=== PATIENT | male | born 1955 | race Caucasian/White ===

== ENCOUNTER 2019-04-21 09:59 | Observation (INO) ==
[~2019-04-21 09:59] MED LIST: ACETAMINOPHEN 500 MG TABLET PO ONE; CELECOXIB 200 MG CAPSULE PO ONE; GABAPENTIN 300 MG CAPSULE PO ONE; LIDOCAINE W/ SODIUM BICARB 0.5 ML SYR ONE; LIDOCAINE W/ SODIUM BICARB 0.5 ML SYR SUBD PRN; Lactated Ringers 1,000 ML PRIMARY IV ONE; Nasal Sanitizer POPSWAB ampule 3 AMP (Nozin) PREOP DOSE ENOS SCH; PANTOPRAZOLE 20 MG TABLET.DR PO ONE; ceFAZolin Inj 2gm (Premix) 0 GM/0 ML BAG IV ONE; ceFAZolin Inj 2gm (Premix) 2 GM/50 ML BAG IV ONE; ceFAZolin Inj 3 GM in Sodium Chloride 0.9% 100 ML IV ONE
[2019-04-21] MEDS ORDERED: EPINEPHrine Inj (1:1,000) 30mg/30ml vial ONE (10:52)
[2019-04-21] MEDS ORDERED: BUPivacaine Inj 0.25% PF - 10ml vial ONE (10:52)
[2019-04-21] MEDS: Lactated Ringers 1,000 ML PRIMARY IV SCH (11:00)
[2019-04-21] MEDS ORDERED: MIDAZOLAM 5 MG/1 ML ONE (11:20)
[2019-04-21] MEDS ORDERED: fentaNYL Inj 100 MCG/2 ML VIAL ONE ×2 (11:21→12:03)
[2019-04-21] MEDS ORDERED: DEXAMETHASONE PF 10 MG/1 ML VIAL ONE ×2 (11:22→13:04)
[2019-04-21] MEDS ORDERED: BUPIVACAINE 0.5% W/EPI MPF -30 ML VIAL IV ONE (11:22)
[2019-04-21] MEDS ORDERED: Prochlorperazine Edisylate Inj 10mg/2ml vial IVP PRN (11:37)
[2019-04-21] MEDS ORDERED: ATROPINE SULFATE 0.4 MG/1 ML VIAL IVP PRN (11:37)
[2019-04-21] MEDS ORDERED: fentaNYL Inj 100 MCG/2 ML VIAL IVP PRN (11:37)
[2019-04-21] MEDS ORDERED: HYDROmorphone 2 MG/1 ML IVP PRN (11:37)
[2019-04-21] MEDS ORDERED: LIDOCAINE W/ SODIUM BICARB 0.5 ML SYR SUBD PRN (11:37)
--- NOTE | 2019-04-21 11:37 | CRNA.PROGR ---
Post Anesthesia Phase II - Post Anesthesia Phase II Patient Stable and Discharged To: Med/Surg (Went to floor because of uncertain status re his support person.) Care Assumed By Surgeon: Mark Pratt MD Total Rhys Score at Discharge: 9 Post Anesthesia Discharge Criteria Met: Yes
--- NOTE | 2019-04-21 11:37 | CRNA.PROGR ---
Anesthesia Time - Procedure/Recovery Time Start Date: 04/21/19 End Date: 04/21/19 Anesthesia : Time In: 11:52 Anesthesia : Time Out: 16:06 Anesthesia : Total Time: 254 - Block Time Start Date: 04/21/19 End Date: 04/21/19 PreOp Block : Time In: 11:25 PreOp Block : Time Out: 11:30 PreOp Block : Total Time: 5 - Total Anesthesia Time Total Anesthesia Time (minutes): 259 - Other Weight: 128.457 kg Height: 6 ft 5 in Body Mass Index (BMI): 33.5 Physical Status: P2 Anesthesia Type: General Anesthesia : LMA
--- NOTE | 2019-04-21 11:37 | CRNA.PROCE ---
Nerve Block Documentation - - Safety Measures: Time Out Taken, Site Verified - - Type of Nerve Block Used: Left Interscalene Block Position for Nerve Block: Supine Moniters Used During Block: EKG, SPO2, NIBP Oxygen Supplemented: Yes Sedation Used - Enter Amount in Comment Field [ANES.SEDAT]: Midazolam (mg): Yes (3), Fentanyl (mcg): Yes (50) Skin Prep Used: ChloroPrep (Twice) Draped: No Technique: Nerve Stimulator Nerve Block Needle Used: 40 mm ProBlk II Local Anesthetic - Enter Amt in Comment Field [ANES.LOCNB]: 0.5 % Bupivicaine with Epinephrine 1:200,000 (mL): Yes (30 in 3 ml increments) Additives to Nerve Blocks: Dexamethasone (mg): Yes (10) - - PreOp Block : Time In: 11:25 PreOp Block : Time Out: 11:30 Anesthesia Time - Other Weight: 128.457 kg Height: 6 ft 5 in Body Mass Index (BMI): 33.5
[2019-04-21] MEDS ORDERED: LIDOCAINE MPF 2% - 5 ML (20 MG/1 ML) ONE (11:45)
[2019-04-21] MEDS ORDERED: Lactated Ringers 1,000 ML PRIMARY IV SCH (11:45)
[2019-04-21] MEDS ORDERED: PROPOFOL 10 MG/1 ML (200 MG/20 ML) VIAL IV ONE (11:45)
[2019-04-21] MEDS ORDERED: TRANEXAMIC ACID 1,000 MG / 10 ML VIAL ONE ×2 (12:46→13:21)
[2019-04-21] MEDS ORDERED: ONDANSETRON 4 MG/2 ML VIAL ONE (13:04)
[2019-04-21] MEDS ORDERED: Lactated Ringers 1,000 ML PRIMARY IV ONE (13:43)
[2019-04-21] MEDS ORDERED: ONDANSETRON 4 MG/2 ML VIAL IVP PRN (17:18)
[2019-04-21] MEDS ORDERED: HYDROcodone-APAP 7.5 MG-325 MG TABLET PO PRN (17:18)
--- NOTE | 2019-04-21 20:52 | ORTHO.OP ---
- - -: See Dictated Operative Report Surgery Date: 04/21/19 Surgeon: Mark Pratt MD Timber Grader: Pretty Howell PA-C Anesthesia Provider: Chaya Tovar CRNA
[2019-04-22] MEDS: Lactated Ringers 1,000 ML PRIMARY IV SCH ×2 (06:49→06:50)
[2019-04-22 06:56] VITALS: RESP 16; O2SAT 93
[2019-04-22 07:19] VITALS: BP 134/85; TEMP 98.6
[2019-04-22] MEDS ORDERED: CALCIUM CARBONATE 500 MG (TUMS) CHEWABLE TABLET PO PRN (07:20)
[2019-04-22] MEDS ORDERED: DOCUSATE 100 MG CAPSULE PO PRN (07:20)
[2019-04-22] MEDS ORDERED: FLUTICASONE PROPIONATE 16 GRAM (120 SPRAYS / BOTTLE) ENOS SCH (07:30)
[2019-04-22] MEDS ORDERED: FLUTICASONE/SALMETEROL 250/50 UD INHALER INH SCH (07:30)
[2019-04-22] MEDS ORDERED: ADVAIR PO SCH ×2 (08:45→19:00)
[2019-04-22] MEDS ORDERED: [UNRECOGNIZED DRUG - OTHER] ENOS PRN (09:00)
--- NOTE | 2019-04-22 11:28 | PT.PROG ---
Progress Note Progress Note: S. Patient stated that that he is feeling good and feels ready to go home. O. Patient ambulated 175 feet around the nurses station then ascended and descended 3 stairs and ambulated back to his room where he was left with call light. A. Patient tolerated ambulation and stair training well this morning. P. Patient has met all goals at this time.
--- NOTE | 2019-04-25 09:37 | OPS SHOULD ---
Diagnosis : Left Shoulder RTC/Biceps Tenodesis Referral Reason: Instruction in Activities of Daily Living O: The patient was instructed in activities of daily living including dressing and bathing, as well as shoulder do's and don'ts. P: No further therapy is indicated at this time. The patient will begin outpatient physical therapy. [facility]
== END 2019-04-22 10:35 | disposition home or self-care (01) ==
LOC: MED/SURG 09:59 → OR 09:59 → OPS 10:00
PROVIDERS: ADMIT Orthopaedic Surgery; ATTEND Orthopaedic Surgery